=== PATIENT | female | born 1985 | race Caucasian/White ===

== ENCOUNTER 2016-10-26 04:11 | Emergency (ER) | payer BC ==
[2016-10-26] MEDS ORDERED: HYDROmorphone 1 MG/ML SYRINGE IM STA (04:24)
[2016-10-26] MEDS ORDERED: ONDANSETRON ODT 4 MG TABLET TL STA (04:25)
[2016-10-26] MEDS ORDERED: HYDROmorphone 1 MG/ML SYRINGE ONE (04:27)
[2016-10-26] MEDS ORDERED: ONDANSETRON ODT 4 MG TABLET ONE (04:27)
[2016-10-26] MEDS ORDERED: HYDROcod/ACETAM 5/325 MG TABLET PO STA (05:39)
[2016-10-26] MEDS ORDERED: HYDROcod/ACETAM 5/325 MG TABLET ONE (05:43)
== END 2016-10-26 05:50 | disposition home or self-care (01) ==
DX: O03.9 Complete or unspecified spontaneous abortion without complication (principal)
CPT/HCPCS: 36415; 80053; 83690; 85025; 96372; 99283; 99284; A9270; J1170; Q0162